=== PATIENT | male | born 1965 | race Caucasian/White ===

== ENCOUNTER 2017-08-12 04:02 | Emergency (ER) | payer BC ==
[2017-08-12] MEDS: IV NORMAL SALINE 1000ML BAG 1,000 ML IV ×2 (04:58)
[2017-08-12] MEDS: predniSONE 10 MG TABLET PO ×2 (05:02)
[2017-08-12] MEDS: KETOROLAC 30 MG/ML INJ. IV ×2 (05:03)
[2017-08-12] MEDS: MORPHINE SULFATE 10 MG/ML VIAL. IV ×2 (05:08)
[2017-08-12] MEDS: IPRATRPIUM/ALBUTEROL 0.5/2.5MG 3 ML NEBU. NEB ×2 (05:18)
[2017-08-12] MEDS ORDERED: fentaNYL PF VIAL 100 MCG/2 ML VIAL IV ×2 (05:45)
[2017-08-12] MEDS ORDERED: IV NORMAL SALINE 1000ML BAG 1,000 ML IV ×2 (05:45)
== END 2017-08-12 06:44 | disposition home or self-care (01) ==
LOC: ER 04:02
DX: J11.1 Influenza due to unidentified influenza virus with other respiratory manifestations (principal); J98.01 Acute bronchospasm
CPT/HCPCS: 94640; 96361; 96374; 96375; 99284-25; J1885; J2270; J7030; J7512; J7620

== ENCOUNTER → 2018-09-08 | Outpatient (CLI) | payer BC ==
[2017-08-12 06:29] VITALS: BP 124/76
[~2018-09-08] MED LIST: DOXY100C14 PO; HYDR5SUS PO; PRED50TA PO; PROVENTIL HFA6.7 G2 IH
--- NOTE | 2018-09-08 13:55 | KCIC ---
PROCEDURE: CHEST PA LATERAL CLINICAL INDICATION: Weight loss of 30 pounds. Smoker. COMPARISON: None FINDINGS: No pneumothorax identified. Cardiac and mediastinal contours unremarkable. No pulmonary consolidation or acute airspace disease. No acute osseous abnormalities identified. IMPRESSION: No pulmonary consolidation or acute airspace disease. Electronically signed by: Flaquito Ghotra DO (09/08/2018 1:52 PM) [id number]
== END | disposition home or self-care (01) ==
LOC: KCIC 13:15
PROVIDERS: ATTEND Family Medicine
DX: R63.4 Abnormal weight loss (principal); F17.200 Nicotine dependence, unspecified, uncomplicated
CPT/HCPCS: 71046

== ENCOUNTER → 2019-01-16 | Outpatient (CLI) | payer BC ==
[2017-08-12 06:29] VITALS: BP 124/76
--- NOTE | 2019-01-16 15:57 | KCIC ---
Three-view right foot study Clinical indications: Right foot pain status post injury 4 days ago. FINDINGS: No acute fracture or dislocation or lytic process is seen. No periosteal reaction is evident. 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 IMPRESSION: No acute fracture. Electronically signed by: Husam Fierro MD (01/16/2019 3:54 PM) [id number]
== END | disposition home or self-care (01) ==
LOC: KCIC 10:28
PROVIDERS: ATTEND Nurse Practitioner Family
DX: S99.821A Other specified injuries of right foot, initial encounter (principal); M19.071 Primary osteoarthritis, right ankle and foot; X58.XXXA Exposure to other specified factors, initial encounter; Y93.89 Activity, other specified; Y92.89 Other specified places as the place of occurrence of the external cause; Y99.8 Other external cause status
CPT/HCPCS: 73630

== ENCOUNTER 2020-02-10 15:18 | Inpatient (IN) | payer BC, OTHER ==
[~2020-02-10] VITALS: Ht 182.9 cm; Wt 108.6 kg
--- NOTE | 2020-02-10 17:47 | PHYS DOC ---
Past Medical History Past Medical History: Other Additional Past Medical Histor: broken bones,PRE DIABETIC Past Surgical History: Tonsillectomy, Other Additional Past Surgical Histo: L big toe; Smoking Status: Current Every Day Smoker Alcohol Use: Occasionally Drug Use: None General Adult EDM: Chief Complaint: ABDOMINAL PAIN HPI: HPI: Patient is a 55 year old male presents via private vehicle for abdominal pain. Onset was within last 48 hours without any known inciting event. Tums have been taken with mild alleviation of pain, palpation of generalized abdomen make worse. Pain described as colicky, generalized, and worse in epigastric area. He reports pain is currently 7/10 severity. Timing of symptoms have been constant and worsening since onset. Associated symptoms include nausea. He reports having similar episodes of abdominal pain with increased frequency over the last couple months. He notices this pain occurs an hour or 2 after eating meals and goes away spontaneously but this time, it did not go away prompting him to seek care at [facility] ED Review of Systems: Review of Systems: Constitutional: Denies fever or chills. [] Eyes: Denies change in visual acuity. [] HENT: Denies nasal congestion or sore throat. [] Respiratory: Denies cough or shortness of breath. [] Cardiovascular: Denies chest pain or edema. [] GI: Denies vomiting, bloody stools or diarrhea. Abdominal pain discussed in HPI, positive for nausea [] : Denies dysuria. No discharge [] Musculoskeletal: Denies back pain or joint pain. [] Integument: Denies rash. [] Neurologic: Denies headache, focal weakness or sensory changes. [] Endocrine: Denies polyuria or polydipsia. [] Lymphatic: Denies swollen glands. [] Psychiatric: Denies depression or anxiety. [] Heart Score: HEART Score for Chest Pain: HEART Score for Chest Pain Response (Comments) Value History Moderately Suspicious 1 ECG Normal 0 Age >45 - < 65 1 Risk Factors >3 Risk Factors or Hx CAD 2 Troponin < Normal Limit 0 Total 4 Risk Factors: Risk Factors: DM, Current or recent (<one month) smoker, HTN, HLP, family history of CAD, obesity. Risk Scores: Score 0 - 3: 2.5% MACE over next 6 weeks - Discharge Home Score 4 - 6: 20.3% MACE over next 6 weeks - Admit for Clinical Observation Score 7 - 10: 72.7% MACE over next 6 weeks - Early Invasive Strategies Allergies: Allergies: Allergies Coded Allergies Type Severity Reaction Last Updated Verified No Known Drug Allergies 08/12/17 No Physical Exam: PE: Constitutional: Well developed, well nourished, mild distress, non-toxic appearance. [] HENT: Normocephalic, atraumatic, bilateral external ears normal, oropharynx moist, no oral exudates, nose normal. [] Eyes: PERRLA, EOMI, conjunctiva normal, no discharge. [] Neck: Normal range of motion, no tenderness, supple, no stridor. [] Cardiovascular:Heart rate regular rhythm, no murmur [] Lungs & Thorax: Bilateral breath sounds clear to auscultation [] Abdomen: Bowel sounds normal, soft, no masses, no pulsatile masses. Generalized tenderness to palpation in all 4 quadrants, worse in epigastric region, positive Rocha's, negative obturator sign, negative heel slap, no peritoneal signs, nonsurgical abdomen Skin: Warm, dry, no erythema, no rash. [] Back: No tenderness, no CVA tenderness. [] Extremities: No tenderness, no cyanosis, no clubbing, ROM intact, no edema. [] Neurologic: Alert and oriented X 3, normal motor function, normal sensory function, no focal deficits noted. [] Psychologic: Affect normal, judgement normal, mood normal. [] Current Patient Data: Labs: Laboratory Tests Test 02/10/20 17:40 White Blood Count 11.4 x10^3/uL Red Blood Count 5.37 x10^6/uL Hemoglobin 17.6 g/dL Hematocrit 50.6 % Mean Corpuscular Volume 94 fL Mean Corpuscular Hemoglobin 33 pg Mean Corpuscular Hemoglobin Concent 35 g/dL Red Cell Distribution Width 13.9 % Platelet Count 210 x10^3/uL Neutrophils (%) (Auto) 67 % Lymphocytes (%) (Auto) 18 % Monocytes (%) (Auto) 11 % Eosinophils (%) (Auto) 4 % Basophils (%) (Auto) 0 % Neutrophils # (Auto) 7.6 x10^3/uL Lymphocytes # (Auto) 2.0 x10^3/uL Monocytes # (Auto) 1.2 x10^3/uL Eosinophils # (Auto) 0.5 x10^3/uL Basophils # (Auto) 0.0 x10^3/uL Sodium Level 136 mmol/L Potassium Level 4.4 mmol/L Chloride Level 102 mmol/L Carbon Dioxide Level 28 mmol/L Anion Gap 6 Blood Urea Nitrogen 13 mg/dL Creatinine 1.1 mg/dL Estimated GFR (Cockcroft-Gault) 69.5 BUN/Creatinine Ratio 12 Glucose Level 152 mg/dL Calcium Level 9.1 mg/dL Total Bilirubin 4.1 mg/dL Aspartate Amino Transf (AST/SGOT) 364 U/L Alanine Aminotransferase (ALT/SGPT) 527 U/L Alkaline Phosphatase 138 U/L Troponin I Quantitative < 0.017 ng/mL Total Protein 7.6 g/dL Albumin 3.9 g/dL Albumin/Globulin Ratio 1.1 Lipase 38688 U/L Current Medications Medications (Trade) Dose Ordered Sig/Damon Route PRN Reason Start Time Stop Time Status Last Admin Dose Admin Multi-Ingredient Mouthwash/Gargle (Gi Cocktail) 20 ml 1X ONCE SWSW 02/10/20 18:00 02/10/20 18:01 DC 02/10/20 18:02 Multi-Ingredient Mouthwash/Gargle (Gi Cocktail) 20 ml STK-MED ONCE .ROUTE 02/10/20 18:00 02/10/20 18:01 DC Iohexol (Omnipaque 300 Mg/ml) 75 ml 1X ONCE IV 02/10/20 19:00 02/10/20 19:01 DC 02/10/20 19:07 Info (CONTRAST GIVEN -- Rx MONITORING) 1 each PRN DAILY PRN MC SEE COMMENTS 02/10/20 18:45 02/12/20 18:44 Sodium Chloride 1,000 ml @ 175 mls/hr 1X ONCE IV 02/10/20 20:00 02/11/20 01:42 02/10/20 20:37 Vital Signs: Vital Signs Date Time Temp Pulse Resp B/P (MAP) Pulse Ox O2 Delivery O2 Flow Rate FiO2 02/10/20 17:25 98.3 82 18 161/93 (115) 97 Room Air 98.3 EKG: EKG: EKG obtained and interpreted by myself at 1801 hrs. as normal sinus rhythm at 70 bpm, no axis deviation, unremarkable intervals, no ischemic findings, no STEMI Radiology/Procedures: Radiology/Procedures: PROCEDURE: CT ABD PELV W/ IV CONTRST ONLY EXAM: CT ABDOMEN/PELVIS WITH CONTRAST. HISTORY: Abdominal pain. TECHNIQUE: Computed tomography of the abdomen and pelvis was performed after the intravenous administration of iodinated contrast. One or more of the following individualized dose reduction techniques were utilized for this examination: 1. Automated exposure control. 2. Adjustment of the mA and/or kV according to patient size. 3. Use of iterative reconstruction technique. COMPARISON: None. FINDINGS: Lung windows through the visualized portions of the bases reveal mild atelectasis. Bone windows reveal no suspicious lesions. The gallbladder wall is thickened. There is a gallstone in the gallbladder neck. The common duct is mildly dilated at 9 mm. The liver, pancreas, spleen and kidneys are unremarkable. A nodule in the right adrenal gland measures 24 Hounsfield units postcontrast and is indeterminate. It measures 16 mm. Another 7 mm nodule in the left adrenal gland is also indeterminate by CT criteria. There are no pathologically enlarged lymph nodes. The appendix is not inflamed. There is no small bowel obstruction. The prostate is moderately enlarged at 5.4 cm. IMPRESSION: 1. Gallbladder wall thickening. Gallstone in the gallbladder neck. These findings are consistent with acute cholecystitis. 2. Mild intra and extrahepatic biliary dilatation. No radiopaque choledocholithiasis. 3. Bilateral adrenal nodules are indeterminate by CT criteria but most likely reflect benign adenomas in the absence of known malignancy. Electronically signed by: Dirk Castrejon MD (02/10/2020 7:20 PM) [id number] PROCEDURE: PORTABLE CHEST 1V Exam: Chest one view INDICATION: Epigastric pain TECHNIQUE: Frontal view of the chest Comparisons: 09/08/2018 FINDINGS: The cardiomediastinal silhouette and pulmonary vessels are within normal limits. The lung and pleural spaces are clear. IMPRESSION: No acute cardiopulmonary process. Electronically signed by: Braxton Rasmussen MD (02/10/2020 6:29 PM) [id number] Course & Med Decision Making: Course & Med Decision Making Patient seen on ED arrival, no past medical records to review Vital signs grossly unremarkable, comprehensive history and physical exam non- concerning for emergent intervention IV access obtained, IV fluids administered and times 1 GI cocktail administered with mild relief in symptoms Pertinent Labs and Imaging studies ordered and reviewed with patient Discuss case with on-call general surgeon, Dr. Law, who recommended admission for eventual surgical fixation of patient's gallbladder Discussed case with hospitalist, Dr. Brannon, who agreed admission of patient for continued medical management in anticipation for surgical fixation Plan of care discussed with patient and . All in agreement for admission for bowel rest, IV antibiotics, continued pain control with eventual plans for surgery Dragon Disclaimer: Dragon Disclaimer: This electronic medical record was generated, in whole or in part, using a voice recognition dictation system. Departure Departure Impression: Primary Impression: Cholecystitis, acute with cholelithiasis Disposition: ADMITTED INPATIENT Admitting Physician: JOSSELINES (Dr. Brannon) Condition: STABLE Referrals: JOSSELYN WATERS MGMT ANALYST (PCP) Justicifation of Admission Dx: Justifications for Admission: Justification of Admission Dx: Yes (Acute cholecystitis with regional involvement of pancreas and liver) CELSO DE LA GARZA DO Feb 10, 2020 17:46
[2020-02-10 17:58] LABS: BASO % 0 % (0-3); EOS # 0.5 x10^3/uL (0.0-0.7); EOS % 4 % (0-3); HEMATOCRIT 50.6 % (39.0-53.0); HEMOGLOBIN 17.6 g/dL (13.0-17.5); LYMPH % 18 % (24-48); MEAN CORPUSCULAR HEMOGLOBIN 33 pg (25-35); MEAN CORPUSCULAR HGB CONC 35 g/dL (31-37); MEAN CORPUSCULAR VOLUME 94 fL (79-100); MONO # 1.2 x10^3/uL (0.0-1.1); MONO % 11 % (0-9); NEUT # 7.6 x10^3/uL (1.8-7.7); NEUT % 67 % (31-73); PLATELET COUNT 210 x10^3/uL (140-400); RED BLOOD COUNT 5.37 x10^6/uL (4.30-5.70); RED CELL DISTRIBUTION WIDTH 13.9 % (11.5-14.5); WHITE BLOOD COUNT 11.4 x10^3/uL (4.0-11.0)
[2020-02-10] MEDS ORDERED: LIDO:MAALOX 1:1 20 ML SINGLE DOSE. SWSW ONE (18:00)
[2020-02-10] MEDS ORDERED: LIDO:MAALOX 1:1 20 ML SINGLE DOSE. ONE (18:00)
[2020-02-10 18:10] LABS: CALCIUM 9.1 mg/dL (8.5-10.1); CREATININE 1.1 mg/dL (0.7-1.3); GFR 69.5; POTASSIUM 4.4 mmol/L (3.5-5.1)
[2020-02-10 18:13] LABS: ALBUMIN 3.9 g/dL (3.4-5.0); ALBUMIN/GLOBULIN RATIO 1.1 (1.0-1.7); TOTAL BILIRUBIN 4.1 mg/dL (0.2-1.0); TOTAL PROTEIN 7.6 g/dL (6.4-8.2)
--- NOTE | 2020-02-10 18:32 | RAD ---
Exam: Chest one view INDICATION: Epigastric pain TECHNIQUE: Frontal view of the chest Comparisons: 09/08/2018 FINDINGS: The cardiomediastinal silhouette and pulmonary vessels are within normal limits. The lung and pleural spaces are clear. IMPRESSION: No acute cardiopulmonary process. Electronically signed by: Braxton Rasmussen MD (02/10/2020 6:29 PM) [id number]
[2020-02-10] MEDS ORDERED: CONTRAST GIVEN. MC PRN (18:45)
[2020-02-10] MEDS ORDERED: IOHEXOL 300 MG/ML 100ML VIAL. IV ONE (19:00)
--- NOTE | 2020-02-10 19:23 | RAD ---
EXAM: CT ABDOMEN/PELVIS WITH CONTRAST. HISTORY: Abdominal pain. TECHNIQUE: Computed tomography of the abdomen and pelvis was performed after the intravenous administration of iodinated contrast. One or more of the following individualized dose reduction techniques were utilized for this examination: 1. Automated exposure control. 2. Adjustment of the mA and/or kV according to patient size. 3. Use of iterative reconstruction technique. COMPARISON: None. FINDINGS: Lung windows through the visualized portions of the bases reveal mild atelectasis. Bone windows reveal no suspicious lesions. The gallbladder wall is thickened. There is a gallstone in the gallbladder neck. The common duct is mildly dilated at 9 mm. The liver, pancreas, spleen and kidneys are unremarkable. A nodule in the right adrenal gland measures 24 Hounsfield units postcontrast and is indeterminate. It measures 16 mm. Another 7 mm nodule in the left adrenal gland is also indeterminate by CT criteria. There are no pathologically enlarged lymph nodes. The appendix is not inflamed. There is no small bowel obstruction. The prostate is moderately enlarged at 5.4 cm. IMPRESSION: 1. Gallbladder wall thickening. Gallstone in the gallbladder neck. These findings are consistent with acute cholecystitis. 2. Mild intra and extrahepatic biliary dilatation. No radiopaque choledocholithiasis. 3. Bilateral adrenal nodules are indeterminate by CT criteria but most likely reflect benign adenomas in the absence of known malignancy. Electronically signed by: Dirk Castrejon MD (02/10/2020 7:20 PM) [facility]
[2020-02-10] MEDS ORDERED: IV NORMAL SALINE 1000ML BAG 1,000 ML IV ONE (20:00)
[2020-02-10] MEDS ORDERED: ONDANSETRON PF 4 MG/2 ML VIAL. IV PRN ×2 (20:15→22:15)
[2020-02-10] MEDS ORDERED: PIPERACILLIN/TAZOBACTAM 4.5 GM in IV NORMAL SALINE 100ML 100 ML IV ONE (20:30)
[2020-02-10] MEDS: MORPHINE SULFATE 2 MG/ML VIAL. IV PRN (20:40)
[2020-02-10 21:25] VITALS: BP 152/97
--- NOTE | 2020-02-10 21:35 | NUR ---
ADMISSION NOTE: Patient arrived to room 528 via wheelchair accompanied by ED staff. Patient able to transfer self to hospital bed without difficulty. Bed low, locked, call light within reach. Patient has no complaints at this time. Will continue to monitor.
[2020-02-10] MEDS ORDERED: METF10007 PO (22:06)
[2020-02-10] MEDS ORDERED: LISI10TA2 PO (22:06)
[2020-02-10] MEDS ORDERED: DAPA10TA PO (22:06)
[2020-02-10] MEDS ORDERED: ATOR10TA60 PO (22:06)
[2020-02-10] MEDS ORDERED: ACETAMINOPHEN 325 MG TABLET. PO PRN (22:15)
[2020-02-10] MEDS ORDERED: diphenhydrAMINE 50 MG/ML VIAL IVP PRN (22:15)
[2020-02-10] MEDS ORDERED: ZOLPIDEM 5 MG TABLET. PO PRN (22:15)
[2020-02-10] MEDS ORDERED: ACETAMINOPHEN 650 MG SUPP.RECT. PR PRN (22:15)
[2020-02-10] MEDS ORDERED: LORazepam 0.5 MG TABLET PO PRN (22:15)
[2020-02-10] MEDS ORDERED: DOCUSATE SODIUM 100 MG CAPSULE. PO PRN (22:15)
[2020-02-10] MEDS ORDERED: guaiFENesin ORAL 200 MG/10 ML LIQUID. PO PRN (22:15)
--- NOTE | 2020-02-10 22:21 | PDOC1 ---
History and Physical Date of Admission Date of Admission ` February 10, 2020 Identification/Chief Complaint Chief Complaint My stomach hurt Source Source: Chart review, Patient History of Present Illness History of Present Illness Patient is a 55-year-old male with no significant past medical history who was in his usual state of health until more or less 2 weeks ago when he started complaining of epigastric pain. The patient has tried to self medicated at home with Pepto-Bismol Fatmata-[place] and Nexium with very little relief of his symptoms. Patient denies dietary transgressions but when asked further the patient seems to indulge in pretty fatty foods including Sonic. The patient has been unable to keep anything down today and the pain he describes as a sharp sensation with no radiation to the back but does seem to be in a bandlike fashion across his epigastrium to the right and left flank. The patient has associated nausea no vomiting no diarrhea no travels outside this area and no sick contacts have been reported. The patient denies fever chills no other complaints were voiced. Patient was found to have findings concerning for acute cholecystitis on imaging studies he certainly is quite tender on physical exam but certainly not exhibiting peritoneal signs nor surgical abdomen signs. He was found to have also an elevated white blood cell count transaminases and also lipase. Results of his imaging studies were discussed with the patient, was at bedside as well and plan of care explained in detail all of their concerns addressed to the best of my abilities he will be admitted for definitive treatment Past Medical History Past Medical History Reviewed and found negative noncontributory Cardiovascular: No pertinent hx Past Surgical History Past Surgical History: Other (Reviewed and found negative noncontributory) Family History Family History: No Significant (Reviewed and found negative noncontributory), Other Social History Smoke: No ALCOHOL: none Drugs: None Current Problem List Problem List Problems Medical Problems: (1) Cholecystitis, acute with cholelithiasis Status: Acute Current Medications Current Medications Current Medications Medications (Trade) Dose Ordered Sig/Damon Start Time Stop Time Status Last Admin Dose Admin Info (CONTRAST GIVEN -- Rx MONITORING) 1 each PRN DAILY PRN 02/10/20 18:45 02/12/20 18:44 Iohexol (Omnipaque 300 Mg/ml) 75 ml 1X ONCE 02/10/20 19:00 02/10/20 19:01 DC 02/10/20 19:07 75 ML Morphine Sulfate (Morphine Sulfate) 2 mg PRN Q2HR PRN 02/10/20 20:15 02/11/20 20:14 02/10/20 20:40 2 MG Multi-Ingredient Mouthwash/Gargle (Gi Cocktail) 20 ml STK-MED ONCE 02/10/20 18:00 02/10/20 18:01 DC Ondansetron HCl (Zofran) 4 mg PRN Q8HRS PRN 02/10/20 20:15 02/11/20 20:14 Piperacillin Sod/ Tazobactam Sod 4.5 gm/Sodium Chloride 100 ml @ 200 mls/hr 1X ONCE 02/10/20 20:30 02/10/20 20:59 DC 02/10/20 20:38 200 MLS/HR Sodium Chloride 1,000 ml @ 175 mls/hr 1X ONCE 02/10/20 20:00 02/11/20 01:42 02/10/20 20:37 175 MLS/HR Allergies Allergies Allergies Coded Allergies Type Severity Reaction Last Updated Verified No Known Drug Allergies 08/12/17 No ROS Review of System CONSTITUTIONAL: No fever or chills EYES: No recent changes SKIN: No rash or itching CARDIOVASCULAR: No chest pain, syncope, palpitations, or edema RESPIRATORY: No SOB or cough GASTROINTESTINAL: No nausea, vomiting or abdominal pain NEUROLOGICAL: No headaches or weakness ENDOCRINE: No cold or heat intolerance GENITOURINARY: No urgency or frequency of urination MUSCULOSKELETAL: No back pain or joint pain LYMPHATICS: No enlarged lymph nodes PSYCHIATRIC: No anxiety or depression Physical Exam Physical Exam GEN.: No apparent distress. Alert and oriented. HEENT: Head is normocephalic, atraumatic NECK: Supple. LUNGS: Clear to auscultation. HEART: RRR, S1, S2 present. Peripheral pulses intact ABDOMEN: Soft, nontender. Positive bowel sounds. EXTREMITIES: Without any cyanosis. NEUROLOGIC: Normal speech, normal tone PSYCHIATRIC: Normal affect, normal mood. SKIN: No ulcerations Vitals Vitals Vital Signs Date Time Temp Pulse Resp B/P (MAP) Pulse Ox O2 Delivery O2 Flow Rate FiO2 02/10/20 21:25 98.5 66 18 152/97 (115) 97 Room Air 98.5 Labs Labs Laboratory Tests Test 02/10/20 17:40 02/10/20 20:44 White Blood Count 11.4 x10^3/uL (4.0-11.0) Red Blood Count 5.37 x10^6/uL (4.30-5.70) Hemoglobin 17.6 g/dL (13.0-17.5) Hematocrit 50.6 % (39.0-53.0) Mean Corpuscular Volume 94 fL (79-100) Mean Corpuscular Hemoglobin 33 pg (25-35) Mean Corpuscular Hemoglobin Concent 35 g/dL (31-37) Red Cell Distribution Width 13.9 % (11.5-14.5) Platelet Count 210 x10^3/uL (140-400) Neutrophils (%) (Auto) 67 % (31-73) Lymphocytes (%) (Auto) 18 % (24-48) Monocytes (%) (Auto) 11 % (0-9) Eosinophils (%) (Auto) 4 % (0-3) Basophils (%) (Auto) 0 % (0-3) Neutrophils # (Auto) 7.6 x10^3/uL (1.8-7.7) Lymphocytes # (Auto) 2.0 x10^3/uL (1.0-4.8) Monocytes # (Auto) 1.2 x10^3/uL (0.0-1.1) Eosinophils # (Auto) 0.5 x10^3/uL (0.0-0.7) Basophils # (Auto) 0.0 x10^3/uL (0.0-0.2) Sodium Level 136 mmol/L (136-145) Potassium Level 4.4 mmol/L (3.5-5.1) Chloride Level 102 mmol/L (98-107) Carbon Dioxide Level 28 mmol/L (21-32) Anion Gap 6 (6-14) Blood Urea Nitrogen 13 mg/dL (8-26) Creatinine 1.1 mg/dL (0.7-1.3) Estimated GFR (Cockcroft-Gault) 69.5 BUN/Creatinine Ratio 12 (6-20) Glucose Level 152 mg/dL (70-99) Calcium Level 9.1 mg/dL (8.5-10.1) Total Bilirubin 4.1 mg/dL (0.2-1.0) Aspartate Amino Transf (AST/SGOT) 364 U/L (15-37) Alanine Aminotransferase (ALT/SGPT) 527 U/L (16-63) Alkaline Phosphatase 138 U/L (46-116) Troponin I Quantitative < 0.017 ng/mL (0.000-0.055) Total Protein 7.6 g/dL (6.4-8.2) Albumin 3.9 g/dL (3.4-5.0) Albumin/Globulin Ratio 1.1 (1.0-1.7) Lipase 27046 U/L (73-393) SARS-CoV-2 Antigen (Rapid) Negative (NEGATIVE) Laboratory Tests Test 02/10/20 17:40 02/10/20 20:44 White Blood Count 11.4 x10^3/uL (4.0-11.0) Red Blood Count 5.37 x10^6/uL (4.30-5.70) Hemoglobin 17.6 g/dL (13.0-17.5) Hematocrit 50.6 % (39.0-53.0) Mean Corpuscular Volume 94 fL (79-100) Mean Corpuscular Hemoglobin 33 pg (25-35) Mean Corpuscular Hemoglobin Concent 35 g/dL (31-37) Red Cell Distribution Width 13.9 % (11.5-14.5) Platelet Count 210 x10^3/uL (140-400) Neutrophils (%) (Auto) 67 % (31-73) Lymphocytes (%) (Auto) 18 % (24-48) Monocytes (%) (Auto) 11 % (0-9) Eosinophils (%) (Auto) 4 % (0-3) Basophils (%) (Auto) 0 % (0-3) Neutrophils # (Auto) 7.6 x10^3/uL (1.8-7.7) Lymphocytes # (Auto) 2.0 x10^3/uL (1.0-4.8) Monocytes # (Auto) 1.2 x10^3/uL (0.0-1.1) Eosinophils # (Auto) 0.5 x10^3/uL (0.0-0.7) Basophils # (Auto) 0.0 x10^3/uL (0.0-0.2) Sodium Level 136 mmol/L (136-145) Potassium Level 4.4 mmol/L (3.5-5.1) Chloride Level 102 mmol/L (98-107) Carbon Dioxide Level 28 mmol/L (21-32) Anion Gap 6 (6-14) Blood Urea Nitrogen 13 mg/dL (8-26) Creatinine 1.1 mg/dL (0.7-1.3) Estimated GFR (Cockcroft-Gault) 69.5 BUN/Creatinine Ratio 12 (6-20) Glucose Level 152 mg/dL (70-99) Calcium Level 9.1 mg/dL (8.5-10.1) Total Bilirubin 4.1 mg/dL (0.2-1.0) Aspartate Amino Transf (AST/SGOT) 364 U/L (15-37) Alanine Aminotransferase (ALT/SGPT) 527 U/L (16-63) Alkaline Phosphatase 138 U/L (46-116) Troponin I Quantitative < 0.017 ng/mL (0.000-0.055) Total Protein 7.6 g/dL (6.4-8.2) Albumin 3.9 g/dL (3.4-5.0) Albumin/Globulin Ratio 1.1 (1.0-1.7) Lipase 42259 U/L (73-393) SARS-CoV-2 Antigen (Rapid) Negative (NEGATIVE) VTE Prophylaxis Ordered VTE Prophylaxis Devices: Yes VTE Pharmacological Prophylaxi: No Assessment/Plan Assessment/Plan Acute pancreatitis Transaminitis secondary to most likely cholelithiasis Acute cholecystitis by imaging studies Erythrocytosis which may be hemoconcentration Plan IV fluids N.p.o. Zosyn as per surgical instrument repair specialist Further recommendations based on clinical course and recommendations from surgical instrument repair specialist Pain management DVT prophylaxis with SCDs Justicifation of Admission Dx: Justifications for Admission: Justification of Admission Dx: Yes (Acute cholecystitis with regional involvement of pancreas and liver) CRIS GOMEZ MD Feb 10, 2020 22:21
[2020-02-10] MEDS: ENOXAPARIN 40 MG/0.4 ML SYRINGE. SQ SCH (22:30)
[2020-02-10 23:26] VITALS: BP 138/88
[2020-02-11] MEDS: IV NORMAL SALINE 1000ML BAG 1,000 ML IV SCH ×3 (00:16→17:34)
[2020-02-11] MEDS: MORPHINE SULFATE 2 MG/ML VIAL. IV PRN ×2 (00:16→22:48)
[2020-02-11 02:55] VITALS: BP 117/81
[2020-02-11 04:26] LABS: BASO # 0.1 x10^3/uL (0.0-0.2); BASO % 1 % (0-3); EOS # 0.4 x10^3/uL (0.0-0.7); EOS % 4 % (0-3); HEMATOCRIT 47.4 % (39.0-53.0); HEMOGLOBIN 16.7 g/dL (13.0-17.5); LYMPH # 1.9 x10^3/uL (1.0-4.8); LYMPH % 19 % (24-48); MEAN CORPUSCULAR HEMOGLOBIN 33 pg (25-35); MEAN CORPUSCULAR HGB CONC 35 g/dL (31-37); MEAN CORPUSCULAR VOLUME 94 fL (79-100); MONO # 0.9 x10^3/uL (0.0-1.1); MONO % 9 % (0-9); NEUT # 6.7 x10^3/uL (1.8-7.7); NEUT % 68 % (31-73); PLATELET COUNT 199 x10^3/uL (140-400); RED BLOOD COUNT 5.05 x10^6/uL (4.30-5.70); RED CELL DISTRIBUTION WIDTH 14.1 % (11.5-14.5); WHITE BLOOD COUNT 9.9 x10^3/uL (4.0-11.0)
[2020-02-11 04:35] LABS: CALCIUM 8.2 mg/dL (8.5-10.1); CREATININE 0.9 mg/dL (0.7-1.3); GFR 87.6
[2020-02-11 04:44] LABS: CHOLESTEROL/HDL RATIO 2.3
[2020-02-11 07:00] VITALS: BP 126/82
--- NOTE | 2020-02-11 08:32 | PDOC ---
[facility] [facility] PROGRESS NOTE Chief Complaint Chief Complaint Acute pancreatitis Transaminitis secondary to most likely cholelithiasis Acute cholecystitis by imaging studies Erythrocytosis which may be hemoconcentration Smoker History of Present Illness History of Present Illness Mr Amaya is a 55-year-old male with no significant past medical history who was in his usual state of health until more or less 2 weeks ago when he started c omplaining of epigastric pain. The patient has tried to self medicated at home with Pepto-Bismol [place] and Nexium with very little relief of his symptoms. Patient denies dietary transgressions but when asked further the patient seems to indulge in pretty fatty foods including Sonic. The patient has been unable to keep anything down today and the pain he describes as a sharp sensation with no radiation to the back but does seem to be in a bandlike fashion across his epigastrium to the right and left flank. The patient has associated nausea no vomiting no diarrhea no travels outside this area and no sick contacts have been reported. The patient denies fever chills no other complaints were voiced. Patient was found to have findings concerning for acute cholecystitis on imaging studies: CT with gallbladder wall thickening. Gallstone in the gallbladder neck. These findings are consistent with acute cholecystitis. No radiopaque choledocholithiasis. Bilateral adrenal nodules. Significant for WBC 11.4 on admission down to 9.9 today. Bilirubin 4.1 alkaline phosphatase 136 AST 364 ALT 552 lipase 22,870 down to 5067 today. Total triglycerides 82. He is hungry and asking for a cigarette. Vitals/I&O Vitals/I&O: Vital Signs Date Time Temp Pulse Resp B/P (MAP) Pulse Ox O2 Delivery O2 Flow Rate FiO2 02/11/20 02:55 98.5 72 16 117/81 (93) 96 Room Air 98.5 I & O 02/10/20 02/10/20 02/11/20 15:00 23:00 07:00 Intake Total 100 ml Balance 100 ml Physical Exam General: Alert, Oriented X3, Cooperative Heart: Regular rate, Normal S1, Normal S2 Lungs: Clear Abdomen: Normal bowel sounds, Soft Extremities: No clubbing, No cyanosis Skin: No rashes, No breakdown Labs Labs: Laboratory Tests Test 02/10/20 17:40 02/10/20 20:44 02/11/20 04:00 White Blood Count 11.4 x10^3/uL (4.0-11.0) 9.9 x10^3/uL (4.0-11.0) Red Blood Count 5.37 x10^6/uL (4.30-5.70) 5.05 x10^6/uL (4.30-5.70) Hemoglobin 17.6 g/dL (13.0-17.5) 16.7 g/dL (13.0-17.5) Hematocrit 50.6 % (39.0-53.0) 47.4 % (39.0-53.0) Mean Corpuscular Volume 94 fL (79-100) 94 fL (79-100) Mean Corpuscular Hemoglobin 33 pg (25-35) 33 pg (25-35) Mean Corpuscular Hemoglobin Concent 35 g/dL (31-37) 35 g/dL (31-37) Red Cell Distribution Width 13.9 % (11.5-14.5) 14.1 % (11.5-14.5) Platelet Count 210 x10^3/uL (140-400) 199 x10^3/uL (140-400) Neutrophils (%) (Auto) 67 % (31-73) 68 % (31-73) Lymphocytes (%) (Auto) 18 % (24-48) 19 % (24-48) Monocytes (%) (Auto) 11 % (0-9) 9 % (0-9) Eosinophils (%) (Auto) 4 % (0-3) 4 % (0-3) Basophils (%) (Auto) 0 % (0-3) 1 % (0-3) Neutrophils # (Auto) 7.6 x10^3/uL (1.8-7.7) 6.7 x10^3/uL (1.8-7.7) Lymphocytes # (Auto) 2.0 x10^3/uL (1.0-4.8) 1.9 x10^3/uL (1.0-4.8) Monocytes # (Auto) 1.2 x10^3/uL (0.0-1.1) 0.9 x10^3/uL (0.0-1.1) Eosinophils # (Auto) 0.5 x10^3/uL (0.0-0.7) 0.4 x10^3/uL (0.0-0.7) Basophils # (Auto) 0.0 x10^3/uL (0.0-0.2) 0.1 x10^3/uL (0.0-0.2) Sodium Level 136 mmol/L (136-145) 138 mmol/L (136-145) Potassium Level 4.4 mmol/L (3.5-5.1) 4.0 mmol/L (3.5-5.1) Chloride Level 102 mmol/L (98-107) 105 mmol/L (98-107) Carbon Dioxide Level 28 mmol/L (21-32) 24 mmol/L (21-32) Anion Gap 6 (6-14) 9 (6-14) Blood Urea Nitrogen 13 mg/dL (8-26) 10 mg/dL (8-26) Creatinine 1.1 mg/dL (0.7-1.3) 0.9 mg/dL (0.7-1.3) Estimated GFR (Cockcroft-Gault) 69.5 87.6 BUN/Creatinine Ratio 12 (6-20) Glucose Level 152 mg/dL (70-99) 145 mg/dL (70-99) Calcium Level 9.1 mg/dL (8.5-10.1) 8.2 mg/dL (8.5-10.1) Total Bilirubin 4.1 mg/dL (0.2-1.0) Aspartate Amino Transf (AST/SGOT) 364 U/L (15-37) Alanine Aminotransferase (ALT/SGPT) 527 U/L (16-63) Alkaline Phosphatase 138 U/L (46-116) Troponin I Quantitative < 0.017 ng/mL (0.000-0.055) Total Protein 7.6 g/dL (6.4-8.2) Albumin 3.9 g/dL (3.4-5.0) Albumin/Globulin Ratio 1.1 (1.0-1.7) Lipase 91951 U/L (73-393) 5067 U/L (73-393) SARS-CoV-2 Antigen (Rapid) Negative (NEGATIVE) Triglycerides Level 82 mg/dL (0-150) Cholesterol Level 74 mg/dL (0-200) LDL Cholesterol, Calculated 26 mg/dL (0-100) VLDL Cholesterol, Calculated 16 mg/dL (0-40) Non-HDL Cholesterol Calculated 42 mg/dL (0-129) HDL Cholesterol 32 mg/dL (40-60) Cholesterol/HDL Ratio 2.3 Assessment and Plan Assessmemt and Plan Problems Medical Problems: (1) Cholecystitis, acute with cholelithiasis Status: Acute Comment Review of Relevant I have reviewed the following items melissa (where applicable) has been applied. Medications: Current Medications Medications (Trade) Dose Ordered Sig/Damon Route PRN Reason Start Time Stop Time Status Last Admin Dose Admin Multi-Ingredient Mouthwash/Gargle (Gi Cocktail) 20 ml 1X ONCE SWSW 02/10/20 18:00 02/10/20 18:01 DC 02/10/20 18:02 Iohexol (Omnipaque 300 Mg/ml) 75 ml 1X ONCE IV 02/10/20 19:00 02/10/20 19:01 DC 02/10/20 19:07 Sodium Chloride 1,000 ml @ 175 mls/hr 1X ONCE IV 02/10/20 20:00 02/11/20 01:42 DC 02/10/20 20:37 Piperacillin Sod/ Tazobactam Sod 4.5 gm/Sodium Chloride 100 ml @ 200 mls/hr 1X ONCE IV 02/10/20 20:30 02/10/20 20:59 DC 02/10/20 20:38 Morphine Sulfate (Morphine Sulfate) 2 mg PRN Q2HR PRN IV PAIN 02/10/20 20:15 02/11/20 20:14 02/11/20 00:16 Sodium Chloride 1,000 ml @ 100 mls/hr Q10H IV 02/10/20 22:15 02/11/20 00:16 Justicifation of Admission Dx: Justifications for Admission: Justification of Admission Dx: Yes (Acute cholecystitis with regional involvement of pancreas and liver) JUAN CARLOS OLIVARES MD Feb 11, 2020 08:32
[2020-02-11] MEDS: PIPERACILLIN/TAZOBACTAM 3.375 GM in IV NORMAL SALINE 50ML 50 ML IV SCH ×3 (09:13→17:34)
[2020-02-11] MEDS: NICOTINE POLACRILEX 2MG GUM PACKAGE of 12. BC PRN ×2 (10:41→12:30)
--- NOTE | 2020-02-11 10:43 | PDOC2 ---
CONSULT Date of Consult Date of Consult DATE: 02/11/20 TIME: 10:41 Reason for Consult Reason for Consult: Gallstone pancreatitis Referring Physician Referring Physician: Genie Identification/Chief Complaint Chief Complaint Abdominal pain Source Source: Chart review, Patient History of Present Illness Reason for Visit: 55-year-old male whose had abdominal pain epigastric nature to right upper quadrant for 5 days became worse and his came to the emergency department for evaluation. He has had some nausea no vomiting on evaluation emergency department was found to have elevated lipase and a CT scan showing gallstones with thickened gallbladder wall Past Medical History Cardiovascular: No pertinent hx Past Surgical History Past Surgical History: Other (Reviewed and found negative noncontributory) Family History Family History: No Significant (Reviewed and found negative noncontributory), Other Social History No ALCOHOL: none Drugs: None Current Problem List Problem List Problems Medical Problems: (1) Cholecystitis, acute with cholelithiasis Status: Acute Current Medications Current Medications Current Medications Multi-Ingredient Mouthwash/Gargle (Gi Cocktail) 20 ml 1X ONCE SWSW Last administered on 02/10/20at 18:02; Start 02/10/20 at 18:00; Stop 02/10/20 at 18:01; Status DC Multi-Ingredient Mouthwash/Gargle (Gi Cocktail) 20 ml STK-MED ONCE .ROUTE ; Start 02/10/20 at 18:00; Stop 02/10/20 at 18:01; Status DC Iohexol (Omnipaque 300 Mg/ml) 75 ml 1X ONCE IV Last administered on 02/10/20at 19:07; Start 02/10/20 at 19:00; Stop 02/10/20 at 19:01; Status DC Info (CONTRAST GIVEN -- Rx MONITORING) 1 each PRN DAILY PRN MC SEE COMMENTS; Start 02/10/20 at 18:45; Stop 02/12/20 at 18:44 Sodium Chloride 1,000 ml @ 175 mls/hr 1X ONCE IV Last administered on 02/10/20at 20:37; Start 02/10/20 at 20:00; Stop 02/11/20 at 01:42; Status DC Piperacillin Sod/ Tazobactam Sod 4.5 gm/Sodium Chloride 100 ml @ 200 mls/hr 1X ONCE IV Last administered on 02/10/20at 20:38; Start 02/10/20 at 20:30; Stop 02/10/20 at 20:59; Status DC Ondansetron HCl (Zofran) 4 mg PRN Q8HRS PRN IV NAUSEA/VOMITING; Start 02/10/20 at 20:15; Stop 02/11/20 at 20:14 Morphine Sulfate (Morphine Sulfate) 2 mg PRN Q2HR PRN IV PAIN Last administered on 02/11/20at 00:16; Start 02/10/20 at 20:15; Stop 02/11/20 at 20:14 Sodium Chloride 1,000 ml @ 100 mls/hr Q10H IV Last administered on 02/11/20at 08:28; Start 02/10/20 at 22:15 Ondansetron HCl (Zofran) 4 mg PRN Q4HRS PRN IV NAUSEA/VOMITING; Start 02/10/20 at 22:15 Zolpidem Tartrate (Ambien) 5 mg PRN QHS PRN PO INSOMNIA; Start 02/10/20 at 22:15 Acetaminophen (Tylenol) 650 mg PRN Q4HRS PRN PO TEMP OVER 100.4F OR MILD PAIN; Start 02/10/20 at 22:15 Acetaminophen (Tylenol Supp) 650 mg PRN Q4HRS PRN FL TEMP OVER 100.4F OR MILD PAIN; Start 02/10/20 at 22:15 Diphenhydramine HCl (Benadryl) 25 mg PRN Q4HRS PRN IVP ITCHING; Start 02/10/20 at 22:15 Docusate Sodium (Colace) 100 mg PRN BID PRN PO HARD STOOLS; Start 02/10/20 at 22:15 Guaifenesin (Robitussin) 200 mg PRN Q4HRS PRN PO COUGH; Start 02/10/20 at 22:15 Lorazepam (Ativan) 0.5 mg PRN Q4HRS PRN PO ANXIETY / AGITATION; Start 02/10/20 at 22:15 Lorazepam (Ativan Inj) 1 mg PRN Q4HRS PRN IV ANXIETY / AGITATION; Start 02/10/20 at 22:15 Enoxaparin Sodium (Lovenox 40mg Syringe) 40 mg Q24H SQ ; Start 02/10/20 at 22:30 Piperacillin Sod/ Tazobactam Sod 3.375 gm/Sodium Chloride 50 ml @ 100 mls/hr Q6HRS IV Last administered on 02/11/20at 09:13; Start 02/11/20 at 08:30 Nicotine Polacrilex (Nicorette Gum) 1 each PRN Q1HR PRN BC SMOKING CESSATION; Start 02/11/20 at 09:30 Active Scripts Active Reported Lisinopril 10 Mg Tablet 1 Tab PO DAILY Farxiga (Dapagliflozin Propanediol) 10 Mg Tablet 1 Tab PO DAILY Atorvastatin Calcium 10 Mg Tablet 1 Tab PO DAILY Metformin Hcl 1,000 Mg Tablet 1 Tab PO BIDBFRMEAL Allergies Allergies: Coded Allergies: No Known Drug Allergies (Unverified , 08/12/17) ROS Gastrointestinal: Yes Nausea, Yes Abdominal Pain Physical Exam General: Alert, Oriented X3, Cooperative, mild distress HEENT: Atraumatic Lungs: Clear to auscultation, Normal air movement Heart: Regular rate, No murmurs Abdomen: Normal bowel sounds, Soft, Other (Tender to palpation right upper qu adrant epigastrium) Extremities: No edema Skin: No significant lesion Neuro: Normal speech Psych/Mental Status: Mental status NL Vitals VITALS Vital Signs Date Time Temp Pulse Resp B/P (MAP) Pulse Ox O2 Delivery O2 Flow Rate FiO2 02/11/20 07:00 98.3 66 18 126/82 (97) 93 Room Air 98.3 Labs Labs Laboratory Tests Test 02/10/20 17:40 02/10/20 20:44 02/11/20 04:00 White Blood Count 11.4 x10^3/uL (4.0-11.0) 9.9 x10^3/uL (4.0-11.0) Red Blood Count 5.37 x10^6/uL (4.30-5.70) 5.05 x10^6/uL (4.30-5.70) Hemoglobin 17.6 g/dL (13.0-17.5) 16.7 g/dL (13.0-17.5) Hematocrit 50.6 % (39.0-53.0) 47.4 % (39.0-53.0) Mean Corpuscular Volume 94 fL (79-100) 94 fL (79-100) Mean Corpuscular Hemoglobin 33 pg (25-35) 33 pg (25-35) Mean Corpuscular Hemoglobin Concent 35 g/dL (31-37) 35 g/dL (31-37) Red Cell Distribution Width 13.9 % (11.5-14.5) 14.1 % (11.5-14.5) Platelet Count 210 x10^3/uL (140-400) 199 x10^3/uL (140-400) Neutrophils (%) (Auto) 67 % (31-73) 68 % (31-73) Lymphocytes (%) (Auto) 18 % (24-48) 19 % (24-48) Monocytes (%) (Auto) 11 % (0-9) 9 % (0-9) Eosinophils (%) (Auto) 4 % (0-3) 4 % (0-3) Basophils (%) (Auto) 0 % (0-3) 1 % (0-3) Neutrophils # (Auto) 7.6 x10^3/uL (1.8-7.7) 6.7 x10^3/uL (1.8-7.7) Lymphocytes # (Auto) 2.0 x10^3/uL (1.0-4.8) 1.9 x10^3/uL (1.0-4.8) Monocytes # (Auto) 1.2 x10^3/uL (0.0-1.1) 0.9 x10^3/uL (0.0-1.1) Eosinophils # (Auto) 0.5 x10^3/uL (0.0-0.7) 0.4 x10^3/uL (0.0-0.7) Basophils # (Auto) 0.0 x10^3/uL (0.0-0.2) 0.1 x10^3/uL (0.0-0.2) Sodium Level 136 mmol/L (136-145) 138 mmol/L (136-145) Potassium Level 4.4 mmol/L (3.5-5.1) 4.0 mmol/L (3.5-5.1) Chloride Level 102 mmol/L (98-107) 105 mmol/L (98-107) Carbon Dioxide Level 28 mmol/L (21-32) 24 mmol/L (21-32) Anion Gap 6 (6-14) 9 (6-14) Blood Urea Nitrogen 13 mg/dL (8-26) 10 mg/dL (8-26) Creatinine 1.1 mg/dL (0.7-1.3) 0.9 mg/dL (0.7-1.3) Estimated GFR (Cockcroft-Gault) 69.5 87.6 BUN/Creatinine Ratio 12 (6-20) Glucose Level 152 mg/dL (70-99) 145 mg/dL (70-99) Calcium Level 9.1 mg/dL (8.5-10.1) 8.2 mg/dL (8.5-10.1) Total Bilirubin 4.1 mg/dL (0.2-1.0) Aspartate Amino Transf (AST/SGOT) 364 U/L (15-37) Alanine Aminotransferase (ALT/SGPT) 527 U/L (16-63) Alkaline Phosphatase 138 U/L (46-116) Troponin I Quantitative < 0.017 ng/mL (0.000-0.055) Total Protein 7.6 g/dL (6.4-8.2) Albumin 3.9 g/dL (3.4-5.0) Albumin/Globulin Ratio 1.1 (1.0-1.7) Lipase 42311 U/L (73-393) 5067 U/L (73-393) SARS-CoV-2 Antigen (Rapid) Negative (NEGATIVE) Triglycerides Level 82 mg/dL (0-150) Cholesterol Level 74 mg/dL (0-200) LDL Cholesterol, Calculated 26 mg/dL (0-100) VLDL Cholesterol, Calculated 16 mg/dL (0-40) Non-HDL Cholesterol Calculated 42 mg/dL (0-129) HDL Cholesterol 32 mg/dL (40-60) Cholesterol/HDL Ratio 2.3 Laboratory Tests Test 02/10/20 17:40 02/10/20 20:44 02/11/20 04:00 White Blood Count 11.4 x10^3/uL (4.0-11.0) 9.9 x10^3/uL (4.0-11.0) Red Blood Count 5.37 x10^6/uL (4.30-5.70) 5.05 x10^6/uL (4.30-5.70) Hemoglobin 17.6 g/dL (13.0-17.5) 16.7 g/dL (13.0-17.5) Hematocrit 50.6 % (39.0-53.0) 47.4 % (39.0-53.0) Mean Corpuscular Volume 94 fL (79-100) 94 fL (79-100) Mean Corpuscular Hemoglobin 33 pg (25-35) 33 pg (25-35) Mean Corpuscular Hemoglobin Concent 35 g/dL (31-37) 35 g/dL (31-37) Red Cell Distribution Width 13.9 % (11.5-14.5) 14.1 % (11.5-14.5) Platelet Count 210 x10^3/uL (140-400) 199 x10^3/uL (140-400) Neutrophils (%) (Auto) 67 % (31-73) 68 % (31-73) Lymphocytes (%) (Auto) 18 % (24-48) 19 % (24-48) Monocytes (%) (Auto) 11 % (0-9) 9 % (0-9) Eosinophils (%) (Auto) 4 % (0-3) 4 % (0-3) Basophils (%) (Auto) 0 % (0-3) 1 % (0-3) Neutrophils # (Auto) 7.6 x10^3/uL (1.8-7.7) 6.7 x10^3/uL (1.8-7.7) Lymphocytes # (Auto) 2.0 x10^3/uL (1.0-4.8) 1.9 x10^3/uL (1.0-4.8) Monocytes # (Auto) 1.2 x10^3/uL (0.0-1.1) 0.9 x10^3/uL (0.0-1.1) Eosinophils # (Auto) 0.5 x10^3/uL (0.0-0.7) 0.4 x10^3/uL (0.0-0.7) Basophils # (Auto) 0.0 x10^3/uL (0.0-0.2) 0.1 x10^3/uL (0.0-0.2) Sodium Level 136 mmol/L (136-145) 138 mmol/L (136-145) Potassium Level 4.4 mmol/L (3.5-5.1) 4.0 mmol/L (3.5-5.1) Chloride Level 102 mmol/L (98-107) 105 mmol/L (98-107) Carbon Dioxide Level 28 mmol/L (21-32) 24 mmol/L (21-32) Anion Gap 6 (6-14) 9 (6-14) Blood Urea Nitrogen 13 mg/dL (8-26) 10 mg/dL (8-26) Creatinine 1.1 mg/dL (0.7-1.3) 0.9 mg/dL (0.7-1.3) Estimated GFR (Cockcroft-Gault) 69.5 87.6 BUN/Creatinine Ratio 12 (6-20) Glucose Level 152 mg/dL (70-99) 145 mg/dL (70-99) Calcium Level 9.1 mg/dL (8.5-10.1) 8.2 mg/dL (8.5-10.1) Total Bilirubin 4.1 mg/dL (0.2-1.0) Aspartate Amino Transf (AST/SGOT) 364 U/L (15-37) Alanine Aminotransferase (ALT/SGPT) 527 U/L (16-63) Alkaline Phosphatase 138 U/L (46-116) Troponin I Quantitative < 0.017 ng/mL (0.000-0.055) Total Protein 7.6 g/dL (6.4-8.2) Albumin 3.9 g/dL (3.4-5.0) Albumin/Globulin Ratio 1.1 (1.0-1.7) Lipase 63048 U/L (73-393) 5067 U/L (73-393) SARS-CoV-2 Antigen (Rapid) Negative (NEGATIVE) Triglycerides Level 82 mg/dL (0-150) Cholesterol Level 74 mg/dL (0-200) LDL Cholesterol, Calculated 26 mg/dL (0-100) VLDL Cholesterol, Calculated 16 mg/dL (0-40) Non-HDL Cholesterol Calculated 42 mg/dL (0-129) HDL Cholesterol 32 mg/dL (40-60) Cholesterol/HDL Ratio 2.3 Assessment/Plan Assessment/Plan Gallstone pancreatitis acute cholecystitis. Agree with plans for IV antibiotics bowel rest once pancreatitis resolved plan for laparoscopic cholecystectomy lizzeth rivera part of next week GONZALEZ BHAGAT MD Feb 11, 2020 10:43
[2020-02-11 11:00] VITALS: BP 137/78
[2020-02-11 15:00] VITALS: BP 132/92
--- NOTE | 2020-02-11 16:44 | NUR ---
Patient was upset today because he could not eat and smoke outside. This nurse offered nicotine patches but patient said they don't work for him. Notified Dr. Prescott who spoke to him about the matter. This afternoon, his came and was questioning about the patient not being able to eat. This nurse explained to the patient and to the patient's that he's on bowel rest due to gallstone pancreatitis. Teaching done regarding management and plan of care, they both verbalized understanding.
[2020-02-11] MEDS: ENOXAPARIN 40 MG/0.4 ML SYRINGE. SQ SCH (19:43)
[2020-02-11 19:46] VITALS: BP 136/90
[2020-02-11] MEDS ORDERED: DEXTROSE 50% 25 GM / 50ML DISP.SYRIN. IV PRN (20:45)
[2020-02-11] MEDS: INSULIN LISPRO 300 UNITS/3 ML VIAL. SQ SCH (20:54)
[2020-02-11] MEDS: LISINOPRIL 10 MG TABLET PO SCH (22:50)
[2020-02-11 23:00] VITALS: BP 137/100
[2020-02-12] MEDS: PIPERACILLIN/TAZOBACTAM 3.375 GM in IV NORMAL SALINE 50ML 50 ML IV SCH ×5 (00:18→23:30)
[2020-02-12 03:05] VITALS: BP 103/64
[2020-02-12] MEDS: IV NORMAL SALINE 1000ML BAG 1,000 ML IV SCH ×3 (05:16→23:30)
[2020-02-12] MEDS: MORPHINE SULFATE 2 MG/ML VIAL. IV PRN ×2 (05:20→21:04)
[2020-02-12 06:50] LABS: ALBUMIN 3.1 g/dL (3.4-5.0); ALBUMIN/GLOBULIN RATIO 0.9 (1.0-1.7); GFR 77.6; POTASSIUM 4.1 mmol/L (3.5-5.1); TOTAL BILIRUBIN 1.1 mg/dL (0.2-1.0); TOTAL PROTEIN 6.4 g/dL (6.4-8.2)
[2020-02-12 07:00] VITALS: BP 137/89
[2020-02-12] MEDS: INSULIN LISPRO 300 UNITS/3 ML VIAL. SQ SCH ×4 (07:30→20:59)
--- NOTE | 2020-02-12 08:11 | PDOC ---
SURGICAL PROGRESS NOTE Subjective Patient doing much better no abdominal pain requesting something to drink Vital Signs Vital Signs Date Time Temp Pulse Resp B/P (MAP) Pulse Ox O2 Delivery O2 Flow Rate FiO2 02/12/20 05:50 20 96 Room Air 02/12/20 03:05 97.9 58 103/64 (77) 97.9 I&O Intake and Output 02/12/20 07:00 Output Total 0 ml Balance 0 ml Output Urine Total 0 ml # Voids 1 PATIENT HAS A ESQUEDA: No General: Alert, Oriented X3, Cooperative, No acute distress Abdomen: Normal bowel sounds, Soft, Other (Mild tenderness in the epigastrium) Labs Laboratory Tests Test 02/10/20 17:40 02/10/20 20:44 02/11/20 04:00 02/11/20 20:28 White Blood Count 11.4 x10^3/uL (4.0-11.0) 9.9 x10^3/uL (4.0-11.0) Red Blood Count 5.37 x10^6/uL (4.30-5.70) 5.05 x10^6/uL (4.30-5.70) Hemoglobin 17.6 g/dL (13.0-17.5) 16.7 g/dL (13.0-17.5) Hematocrit 50.6 % (39.0-53.0) 47.4 % (39.0-53.0) Mean Corpuscular Volume 94 fL (79-100) 94 fL (79-100) Mean Corpuscular Hemoglobin 33 pg (25-35) 33 pg (25-35) Mean Corpuscular Hemoglobin Concent 35 g/dL (31-37) 35 g/dL (31-37) Red Cell Distribution Width 13.9 % (11.5-14.5) 14.1 % (11.5-14.5) Platelet Count 210 x10^3/uL (140-400) 199 x10^3/uL (140-400) Neutrophils (%) (Auto) 67 % (31-73) 68 % (31-73) Lymphocytes (%) (Auto) 18 % (24-48) 19 % (24-48) Monocytes (%) (Auto) 11 % (0-9) 9 % (0-9) Eosinophils (%) (Auto) 4 % (0-3) 4 % (0-3) Basophils (%) (Auto) 0 % (0-3) 1 % (0-3) Neutrophils # (Auto) 7.6 x10^3/uL (1.8-7.7) 6.7 x10^3/uL (1.8-7.7) Lymphocytes # (Auto) 2.0 x10^3/uL (1.0-4.8) 1.9 x10^3/uL (1.0-4.8) Monocytes # (Auto) 1.2 x10^3/uL (0.0-1.1) 0.9 x10^3/uL (0.0-1.1) Eosinophils # (Auto) 0.5 x10^3/uL (0.0-0.7) 0.4 x10^3/uL (0.0-0.7) Basophils # (Auto) 0.0 x10^3/uL (0.0-0.2) 0.1 x10^3/uL (0.0-0.2) Sodium Level 136 mmol/L (136-145) 138 mmol/L (136-145) Potassium Level 4.4 mmol/L (3.5-5.1) 4.0 mmol/L (3.5-5.1) Chloride Level 102 mmol/L (98-107) 105 mmol/L (98-107) Carbon Dioxide Level 28 mmol/L (21-32) 24 mmol/L (21-32) Anion Gap 6 (6-14) 9 (6-14) Blood Urea Nitrogen 13 mg/dL (8-26) 10 mg/dL (8-26) Creatinine 1.1 mg/dL (0.7-1.3) 0.9 mg/dL (0.7-1.3) Estimated GFR (Cockcroft-Gault) 69.5 87.6 BUN/Creatinine Ratio 12 (6-20) Glucose Level 152 mg/dL (70-99) 145 mg/dL (70-99) Calcium Level 9.1 mg/dL (8.5-10.1) 8.2 mg/dL (8.5-10.1) Total Bilirubin 4.1 mg/dL (0.2-1.0) Aspartate Amino Transf (AST/SGOT) 364 U/L (15-37) Alanine Aminotransferase (ALT/SGPT) 527 U/L (16-63) Alkaline Phosphatase 138 U/L (46-116) Troponin I Quantitative < 0.017 ng/mL (0.000-0.055) Total Protein 7.6 g/dL (6.4-8.2) Albumin 3.9 g/dL (3.4-5.0) Albumin/Globulin Ratio 1.1 (1.0-1.7) Lipase 34552 U/L (73-393) 5067 U/L (73-393) SARS-CoV-2 Antigen (Rapid) Negative (NEGATIVE) Triglycerides Level 82 mg/dL (0-150) Cholesterol Level 74 mg/dL (0-200) LDL Cholesterol, Calculated 26 mg/dL (0-100) VLDL Cholesterol, Calculated 16 mg/dL (0-40) Non-HDL Cholesterol Calculated 42 mg/dL (0-129) HDL Cholesterol 32 mg/dL (40-60) Cholesterol/HDL Ratio 2.3 Glucose (Fingerstick) 93 mg/dL (70-99) Test 02/12/20 06:05 Sodium Level 139 mmol/L (136-145) Potassium Level 4.1 mmol/L (3.5-5.1) Chloride Level 106 mmol/L (98-107) Carbon Dioxide Level 22 mmol/L (21-32) Anion Gap 11 (6-14) Blood Urea Nitrogen 11 mg/dL (8-26) Creatinine 1.0 mg/dL (0.7-1.3) Estimated GFR (Cockcroft-Gault) 77.6 BUN/Creatinine Ratio 11 (6-20) Glucose Level 98 mg/dL (70-99) Calcium Level 8.0 mg/dL (8.5-10.1) Total Bilirubin 1.1 mg/dL (0.2-1.0) Aspartate Amino Transf (AST/SGOT) 52 U/L (15-37) Alanine Aminotransferase (ALT/SGPT) 239 U/L (16-63) Alkaline Phosphatase 114 U/L (46-116) Total Protein 6.4 g/dL (6.4-8.2) Albumin 3.1 g/dL (3.4-5.0) Albumin/Globulin Ratio 0.9 (1.0-1.7) Lipase 944 U/L (73-393) Laboratory Tests Test 02/11/20 20:28 02/12/20 06:05 Glucose (Fingerstick) 93 mg/dL (70-99) Sodium Level 139 mmol/L (136-145) Potassium Level 4.1 mmol/L (3.5-5.1) Chloride Level 106 mmol/L (98-107) Carbon Dioxide Level 22 mmol/L (21-32) Anion Gap 11 (6-14) Blood Urea Nitrogen 11 mg/dL (8-26) Creatinine 1.0 mg/dL (0.7-1.3) Estimated GFR (Cockcroft-Gault) 77.6 BUN/Creatinine Ratio 11 (6-20) Glucose Level 98 mg/dL (70-99) Calcium Level 8.0 mg/dL (8.5-10.1) Total Bilirubin 1.1 mg/dL (0.2-1.0) Aspartate Amino Transf (AST/SGOT) 52 U/L (15-37) Alanine Aminotransferase (ALT/SGPT) 239 U/L (16-63) Alkaline Phosphatase 114 U/L (46-116) Total Protein 6.4 g/dL (6.4-8.2) Albumin 3.1 g/dL (3.4-5.0) Albumin/Globulin Ratio 0.9 (1.0-1.7) Lipase 944 U/L (73-393) Problem List Problems Medical Problems: (1) Cholecystitis, acute with cholelithiasis Status: Acute Assessment/Plan Gallstone pancreatitis labs improving clinically much improved Will allow full liquids today plan for laparoscopic cholecystectomy tomorrow Justicifation of Admission Dx: Justifications for Admission: Justification of Admission Dx: Yes (Acute cholecystitis with regional involvement of pancreas and liver) GONZALEZ BHAGAT MD Feb 12, 2020 08:11
[2020-02-12] MEDS: LISINOPRIL 10 MG TABLET PO SCH (08:40)
--- NOTE | 2020-02-12 10:14 | NUR ---
SW following. Discussed with RN, pt from home with . Full liquid diet today, plans for surgery tomorrow (02/13/2020). SW will continue to follow.
[2020-02-12 11:00] VITALS: BP 120/74
--- NOTE | 2020-02-12 12:14 | PDOC ---
[facility] PROGRESS NOTE Chief Complaint Chief Complaint Acute cholecystitis Transaminitis secondary to most likely cholelithiasis Acute cholecystitis by imaging studies Erythrocytosis, resolved Tobacco use History of Present Illness History of Present Illness Mr Amaya is a 55-year-old male with no significant past medical history who was in his usual state of health until more or less 2 weeks ago when he started complaining of epigastric pain. The patient has tried to self medicated at home with Pepto-Bismol Fatmata-Rhinelander and Nexium with very little relief of his symptoms. Patient denies dietary transgressions but when asked further the patient seems to indulge in pretty fatty foods including Sonic. The patient has been unable to keep anything down today and the pain he describes as a sharp sensation with no radiation to the back but does seem to be in a bandlike fashion across his epigastrium to the right and left flank. The patient has associated nausea no vomiting no diarrhea no travels outside this area and no sick contacts have been reported. The patient denies fever chills no other complaints were voiced. Patient was found to have findings concerning for acute cholecystitis on imaging studies: CT with gallbladder wall thickening. Gallstone in the gallbladder neck. These findings are consistent with acute cholecystitis. No radiopaque choledocholithiasis. Bilateral adrenal nodules. Significant for WBC 11.4 on admission down to 9.9 today. Bilirubin 4.1 alkaline phosphatase 136 AST 364 ALT 552 lipase 22,870 down to 5067 today. Total tri glycerides 82. He is hungry and asking for a cigarette. 02/12/2020: Patient seen an examined Chart reviewed Discussed with RN Vitals/I&O Vitals/I&O: Vital Signs Date Time Temp Pulse Resp B/P (MAP) Pulse Ox O2 Delivery O2 Flow Rate FiO2 02/12/20 11:00 98.1 64 20 120/74 (89) 95 Room Air 98.1 I & O 0 02/11/20 02/11/20 02/12/20 15:00 23:00 07:00 Output Total 0 ml Balance 0 ml Physical Exam Physical Exam: GEN.: NAD. Alert and oriented. HEENT: Head is normocephalic, atraumatic NECK: Supple. LUNGS: Clear to auscultation. HEART: RRR, S1, S2 present. Peripheral pulses intact ABDOMEN: Soft. Positive bowel sounds. EXTREMITIES: No cyanosis. NEUROLOGIC: Normal speech, normal tone PSYCHIATRIC: Normal affect, normal mood. SKIN: No ulcerations General: Alert, Oriented X3, Cooperative, No acute distress Heart: Regular rate, No murmurs Lungs: Clear Abdomen: Normal bowel sounds, Soft, Other (Mild tenderness in the epigastrium) Extremities: No edema Skin: No significant lesion Labs Labs: Laboratory Tests Test 02/11/20 20:28 02/12/20 06:05 02/12/20 08:29 02/12/20 11:03 Glucose (Fingerstick) 93 mg/dL (70-99) 106 mg/dL (70-99) 214 mg/dL (70-99) Sodium Level 139 mmol/L (136-145) Potassium Level 4.1 mmol/L (3.5-5.1) Chloride Level 106 mmol/L (98-107) Carbon Dioxide Level 22 mmol/L (21-32) Anion Gap 11 (6-14) Blood Urea Nitrogen 11 mg/dL (8-26) Creatinine 1.0 mg/dL (0.7-1.3) Estimated GFR (Cockcroft-Gault) 77.6 BUN/Creatinine Ratio 11 (6-20) Glucose Level 98 mg/dL (70-99) Calcium Level 8.0 mg/dL (8.5-10.1) Total Bilirubin 1.1 mg/dL (0.2-1.0) Aspartate Amino Transf (AST/SGOT) 52 U/L (15-37) Alanine Aminotransferase (ALT/SGPT) 239 U/L (16-63) Alkaline Phosphatase 114 U/L (46-116) Total Protein 6.4 g/dL (6.4-8.2) Albumin 3.1 g/dL (3.4-5.0) Albumin/Globulin Ratio 0.9 (1.0-1.7) Lipase 944 U/L (73-393) Assessment and Plan Assessmemt and Plan Problems Medical Problems: (1) Cholecystitis, acute with cholelithiasis Status: Acute ASSESSMENT Acute cholecystitis Transaminitis secondary to most likely cholelithiasis Acute cholecystitis by imaging studies Erythrocytosis, resolved PLAN Cholecystectomy tomorrow IV antibiotics Trend labs Appreciate subspecialist input DVT prophylaxis Full code Comment Review of Relevant I have reviewed the following items melissa (where applicable) has been applied. Medications: Current Medications Medications (Trade) Dose Ordered Sig/Damon Route PRN Reason Start Time Stop Time Status Last Admin Dose Admin Morphine Sulfate (Morphine Sulfate) 2 mg PRN Q2HR PRN IV PAIN 02/11/20 22:45 02/12/20 05:20 Lisinopril (Prinivil) 10 mg DAILY PO 02/11/20 22:45 02/12/20 08:40 Justicifation of Admission Dx: Justifications for Admission: Justification of Admission Dx: Yes (Acute cholecystitis with regional involvement of pancreas and liver) NIMCO MARTINEZ III DO Feb 12, 2020 12:14
[2020-02-12 15:06] VITALS: BP 149/97
[2020-02-12 19:00] VITALS: BP 136/87
[2020-02-12] MEDS: ENOXAPARIN 40 MG/0.4 ML SYRINGE. SQ SCH (21:00)
[2020-02-12] MEDS ORDERED: ATORVASTATIN CALCIUM 10 MG TABLET. PO SCH (21:00)
[2020-02-12 23:00] VITALS: BP 132/79
[2020-02-13 03:00] VITALS: BP 109/71
--- NOTE | 2020-02-13 03:17 | EKG ---
[facility] [address] [place] [address] Test Date: 2020-02-10 Test Time: 17:54:27 Pat Name: KATY SOTO Department: Room: Gender: M Head [employer] Professional: : 1965 Requested By: CELSO DE LA GARZA Order Number: [id number] Reading MD: Measurements Intervals [place] Rate: 70 P: 27 MO: 184 QRS: 8 QRSD: 84 T: 34 QT: 370 QTc: 402 Interpretive Statements SINUS RHYTHM NORMAL ECG RI6.01 No previous ECG available for comparison
[2020-02-13] MEDS: PIPERACILLIN/TAZOBACTAM 3.375 GM in IV NORMAL SALINE 50ML 50 ML IV SCH ×2 (05:33→12:00)
[2020-02-13] MEDS ORDERED: ONDANSETRON PF 4 MG/2 ML VIAL. IV PRN (07:00)
[2020-02-13] MEDS ORDERED: PROCHLORPERAZINE 10 MG/2 ML VIAL. IV PRN (07:00)
[2020-02-13] MEDS ORDERED: IV RINGERS,LACTATED 1000ML 1,000 ML IV SCH (07:00)
[2020-02-13] MEDS ORDERED: HYDROmorphone 2 MG/ML VIAL IV PRN (07:00)
[2020-02-13] MEDS ORDERED: fentaNYL PF VIAL 100 MCG/2 ML VIAL IV PRN (07:00)
[2020-02-13] MEDS ORDERED: LIDOCAINE 1% PF 2 ML VIAL. ID PRN (07:00)
[2020-02-13] MEDS ORDERED: MORPHINE SULFATE 2 MG/ML VIAL. IV PRN (07:00)
[2020-02-13] MEDS ORDERED: MIDAZOLAM HCL/PF 2 MG/2 ML VIAL. ONE (07:01)
[2020-02-13] MEDS ORDERED: fentaNYL PF VIAL 100 MCG/2 ML VIAL ONE ×4 (07:01→08:43)
[2020-02-13] MEDS ORDERED: NEOSTIGMINE METHYLSULFATE 5 MG/5 ML SYRINGE. ONE (07:01)
[2020-02-13] MEDS ORDERED: SEVOFLURANE 61 TO 120 MINUTES. IH ONE (07:01)
[2020-02-13] MEDS ORDERED: ROCURONIUM 50 MG/5 ML VIAL. ONE (07:01)
[2020-02-13] MEDS ORDERED: GLYCOPYRROLATE 1 MG/5 ML VIAL. ONE (07:02)
[2020-02-13] MEDS ORDERED: DEXAMETHASONE SOD PHOS 4 MG/ML VIAL ONE ×2 (07:02)
[2020-02-13] MEDS ORDERED: LIDOCAINE 2% PF 5 ML VIAL. ONE (07:02)
[2020-02-13] MEDS ORDERED: ONDANSETRON PF 4 MG/2 ML VIAL. ONE (07:02)
[2020-02-13] MEDS ORDERED: PROPOFOL 10 MG/ML (20ML) VIAL. IV ONE (07:02)
[2020-02-13] MEDS ORDERED: SURGICEL HEMOSTAT 4X8 EACH. ONE (07:06)
[2020-02-13] MEDS ORDERED: IOHEXOL 300 MG/ML 50 ML VIAL. ONE (07:06)
[2020-02-13] MEDS ORDERED: BUPIVACAINE-EPI 0.25%-1:200000 MPF 30 ML VIAL. ONE (07:06)
[2020-02-13] MEDS: INSULIN LISPRO 300 UNITS/3 ML VIAL. SQ SCH ×2 (07:30→12:08)
[2020-02-13] MEDS ORDERED: hydrALAZINE 20 MG/ML VIAL. ONE (08:03)
--- NOTE | 2020-02-13 08:39 | PDOC4 ---
Operative Note Operative Note Date: February 13, 2020 at 08 36 Preoperative diagnosis: Gallstone pancreatitis Postoperative diagnosis: Same Procedure: Laparoscopic cholecystectomy Surgeon: Thanh Specimen: Gallbladder Dictation: Patient is a 55-year-old gentleman admitted to the hospital with pancreatitis ultrasound showing gallstones and thickened gallbladder wall. Procedure of laparoscopic cholecystectomy was explained to the patient detail risk-benefit were also discussed including bleeding infection injury to intra- abdominal contents possible necessitating further or open operations alternatives to this procedure also discussed with the patient who seemed to understand and gave both verbal and written consent to have the procedure performed. Patient was taken to the operating room placed in the supine position general anesthesia was initiated once patient was sleeping intubated his abdomen was prepped and draped usual sterile fashion using ChloraPrep. An area just below the umbilicus was injected with quarter percent Marcaine with epinephrine incision was made 11 blade scalpel a varies needle was placed within the abdomen creating pneumoperitoneum once this was complete the millimeter port was placed and a 5 mm camera is placed within the abdomen which was inspected no other abnormalities were noted other than a thickened edematous gallbladder. 5 mm port was placed in the epigastrium a 5 mm port in the right midabdomen and a 5 mm port in the right lateral abdomen. The dome of the gallbladder is grasped retracted cephalad the infundibulum the gallbladder is grasped tract and laterally adherence of some omentum to the gallbladder wall was taken down with blunt dissection down to the triangle adherent tissues the triangle were taken down with blunt dissection exposing the cystic duct and cystic artery both were doubly clipped and transected the gallbladder was taken off the liver with hook electrocautery placed in Endo Catch bag removed and the umbilicus the right upper quadrant is irrigated and suctioned dry hemostasis deemed be appropriate and the pneumoperitoneum was reduced all ports were removed the fascial defect at the umbilicus closed [id number] Vicryl suture and the skin was reapproximated all port sites for subcuticular Monocryl Mastisol Steri-Strips and island dressings were applied. Patient was awakened and extubated in the operating room taken to recovery in stable condition all sponge instrument needle counts listed as correct estimated blood loss 15 mL. GONZALEZ BHAGAT MD Feb 13, 2020 08:39
[2020-02-13] MEDS ORDERED: oxyCODONE/APAP 5/325 1 TAB TABLET PO PRN (08:45)
[2020-02-13] MEDS: fentaNYL PF VIAL 100 MCG/2 ML VIAL IV PRN ×2 (09:05→09:16)
[2020-02-13] MEDS ORDERED: INSULIN LISPRO 100 UNIT/ML 3ML VIAL for OP,RR ONLY. SQ PRN (09:30)
[2020-02-13 09:50] VITALS: BP 135/80
[2020-02-13] MEDS: LISINOPRIL 10 MG TABLET PO SCH (09:54)
[2020-02-13] MEDS: oxyCODONE/APAP 5/325 1 TAB TABLET PO PRN ×2 (09:54→11:31)
[2020-02-13] MEDS: IV NORMAL SALINE 1000ML BAG 1,000 ML IV SCH (09:56)
[2020-02-13 10:05] VITALS: BP 140/87
[2020-02-13 10:20] VITALS: BP 125/88
--- NOTE | 2020-02-13 11:04 | NUR ---
SW following. Discussed with RN, pt had surgery this morning. RN advised no SW needs, pt is discharging home today with self care.
--- NOTE | 2020-02-13 11:34 | DS ---
DATE OF DISCHARGE: 02/11/2020 ADMISSION DIAGNOSIS: Gallstone pancreatitis. DISCHARGE DIAGNOSIS: Postop day #1 laparoscopic cholecystectomy. HOSPITAL COURSE: The patient is a pleasant middle-aged male, who presented with gallstone pancreatitis. He was admitted. We gave him antibiotics, pain meds, fluids. Consulted the General Surgery. This morning was taken for laparoscopic cholecystectomy. I saw him and examined him a few minutes ago. His heart tones were normal. Lungs were clear. Abdomen was soft. He has got good clean, dry and intact dressing. He is tolerating his food. He wants to go home. We plan to discharge. DISPOSITION: Home. ACTIVITY: As tolerated. DIET: Low sodium. MEDICATIONS: Please see MRAD. TOTAL TIME: 34 minutes. NIMCO MARTINEZ DO DR: ARTURO/pancho JOB#: [id number] / [id number]
--- NOTE | 2020-02-13 11:41 | NUR ---
Discharge Note: KATY SOTO GRANTS Discharge instructions and discharge home medications reviewed with Patient and a copy given. All questions have been answered and understanding verbalized. The following instructions and handouts were given: d/c instructions Discontinued lines and drains: Peripheral IV intact. Patient discharged to Home or Self Care with Spouse via Wheelchair
--- NOTE | 2020-02-14 17:07 | PATHOLOGY ---
[facility] Accession Number: [id number] . 01 Material submitted: . gallbladder - GALLBLADDER AND CONTENTS . 01 Clinical history: . Gallstone pancreatitis, acute cholecystitis . 02 Diagnosis: Gallbladder, laparoscopic cholecystectomy: - Cholelithiasis. - Chronic cholecystitis with focally increased eosinophils. . (JP:mm; 02/14/2020) [facility] 02/14/2020 1406 Local . 02 Comment: There is no evidence of malignancy. . (JPM:mm; 02/14/2020) . 02 Electronically signed: . James Arias MD, Pathologist NPI- [id number] . 01 Gross description: . The specimen is received in formalin, labeled "Shahab Amaya, gallbladder and contents". Received is a partially disrupted gallbladder measuring 10.8 x 4.1 x 3.7 cm in greatest dimensions displaying a pink-quinones serosal surface. Opening the specimen reveals a velvety to trabeculated, pink-red mucosa with a gallbladder wall thickness of 0.1 cm. The lumen of the gallbladder is completely impacted with bright yellow, multinodular to staghorn-appearing stones, and no masses or lesions are noted grossly. Digital Sales Manager sections, to include the proximal margin, are submitted in cassette A1. ([facility]; 02/13/2020) QA/QA 02/14/2020 1404 Local . 02 Pathologist provided ICD-10: K80.10 . 02 CPT . 406933 Specimen Comment: A courtesy copy of this report has been sent to [phone], [phone] Specimen Comment: [id number], Specimen Comment: Report sent to ,DR GOMEZ / DR WATERS Performed at: 01 [facility] [address], [place], [place] [id number] MD Amari Brady MD Phone: [phone] Performed at: 02 [facility] [address], [place] [id number] MD James Arias MD Phone: [phone]
== END 2020-02-13 13:06 | disposition home or self-care (01) | DRG 417 ==
LOC: ER 15:18 → 5 NORTH 20:02
PROVIDERS: ADMIT Internal Medicine; ATTEND Internal Medicine
PROC: 0FT44ZZ Resection of Gallbladder, Percutaneous Endoscopic Approach (ICD-10-PCS; principal; 2020-02-13 07:30)
DX: K80.00 Calculus of gallbladder with acute cholecystitis without obstruction (principal); K85.10 Biliary acute pancreatitis without necrosis or infection; D75.1 Secondary polycythemia; E27.8 Other specified disorders of adrenal gland; F17.200 Nicotine dependence, unspecified, uncomplicated; R73.03 Prediabetes; Z03.818 Encounter for observation for suspected exposure to other biological agents ruled out
CPT/HCPCS: 36415; 71045; 74177; 80048; 80053; 80061; 82962; 83690; 84484; 85025; 87426; 88304; 93005; 96365; 99285; A7015; J0360; J1100; J1650; J1815; J2250; J2270; J2405; J2543; J2704; J2710; J3010; J3490; J7030; J7120; Q9967; G0378; U0003-CS

== ENCOUNTER 2020-02-13 22:00 | Emergency (ER) | payer OTHER ==
[~2020-02-13] VITALS: Ht 182.9 cm; Wt 104.5 kg
[~2020-02-13 22:00] MED LIST changes: +ATOR10TA60 PO; +DAPA10TA PO; +LISI10TA2 PO; +METF10007 PO
--- NOTE | 2020-02-13 22:57 | PHYS DOC ---
Past Medical History Past Medical History: Other Additional Past Medical Histor: broken bones,PRE DIABETIC Past Surgical History: Tonsillectomy, Other Additional Past Surgical Histo: L big toe; Smoking Status: Current Every Day Smoker Alcohol Use: Occasionally Drug Use: None General Adult EDM: Chief Complaint: POST-OP PROBLEM HPI: HPI: Patient is a 55-year-old male who was discharged earlier today after laparoscopic cholecystectomy presents tonight because the wound near his umbilicus is bleeding. He states he coughed once felt a little pop in that area and then noticed some blood trickling through the dressing he denies any pain. He states on arrival here the bleeding seems to be controlled. [] Review of Systems: Review of Systems: Constitutional: Denies fever or chills. [] Eyes: Denies change in visual acuity. [] HENT: Denies nasal congestion or sore throat. [] Respiratory: Denies cough or shortness of breath. [] Cardiovascular: Denies chest pain or edema. [] GI: Denies abdominal pain, nausea, vomiting, bloody stools or diarrhea. [] : Denies dysuria. [] Musculoskeletal: Denies back pain or joint pain. [] Integument: Per HPI [] Neurologic: Denies headache, focal weakness or sensory changes. [] Endocrine: Denies polyuria or polydipsia. [] Lymphatic: Denies swollen glands. [] Psychiatric: Denies depression or anxiety. [] Heart Score: Risk Factors: Risk Factors: DM, Current or recent (<one month) smoker, HTN, HLP, family history of CAD, obesity. Risk Scores: Score 0 - 3: 2.5% MACE over next 6 weeks - Discharge Home Score 4 - 6: 20.3% MACE over next 6 weeks - Admit for Clinical Observation Score 7 - 10: 72.7% MACE over next 6 weeks - Early Invasive Strategies Allergies: Allergies: Allergies Coded Allergies Type Severity Reaction Last Updated Verified No Known Drug Allergies 08/12/17 No Physical Exam: PE: Constitutional: Well developed, well nourished, no acute distress, non-toxic appearance. [] HENT: Normocephalic, atraumatic, bilateral external ears normal, oropharynx moist, no oral exudates, nose normal. [] Eyes: PERRLA, EOMI, conjunctiva normal, no discharge. [] Neck: Normal range of motion, no tenderness, supple, no stridor. [] Cardiovascular:Heart rate regular rhythm, no murmur [] Lungs & Thorax: Bilateral breath sounds clear to auscultation [] Abdomen: Bowel sounds normal, soft, no tenderness, no masses, no pulsatile masses. [] Skin: The surgical incision near the umbilicus has 4 Steri-Strips in place but it does appear that a small area of that wound has dehisced and was oozing some blood. The bleeding appears controlled now [] Back: No tenderness, no CVA tenderness. [] Extremities: No tenderness, no cyanosis, no clubbing, ROM intact, no edema. [] Neurologic: Alert and oriented X 3, normal motor function, normal sensory function, no focal deficits noted. [] Psychologic: Affect normal, judgement normal, mood normal. [] EKG: EKG: [] Radiology/Procedures: Radiology/Procedures: [] Course & Med Decision Making: Course & Med Decision Making Pertinent Labs and Imaging studies reviewed. (See chart for details) [ED course: Evaluation reveals a 55-year-old male who has a small wound dehiscence near the umbilicus. Bleeding is controlled a new dressing was placed patient was reassured and discharged.] Dragon Disclaimer: Dragon Disclaimer: This electronic medical record was generated, in whole or in part, using a voice recognition dictation system. Departure Departure Impression: Primary Impression: Surgical wound dehiscence Qualified Codes: T81.31XA - Disruption of external operation (surgical) wound, not elsewhere classified, initial encounter Disposition: 01 HOME, SELF-CARE Condition: STABLE Referrals: JOSSELY[facility] PUBLICIST (PCP) Patient Instructions: Wound Dehiscence Additional Instructions: Follow with your surgeon as scheduled. Return to the emergency department with any new or concerning symptoms Justicifation of Admission Dx: Justifications for Admission: Justification of Admission Dx: No DUKE FERNANDEZ DO Feb 13, 2020 22:57
[2020-02-13 23:10] VITALS: BP 132/87
== END 2020-02-13 23:13 | disposition home or self-care (01) ==
LOC: ER 22:00
DX: T81.31XA Disruption of external operation (surgical) wound, not elsewhere classified, initial encounter (principal); F17.200 Nicotine dependence, unspecified, uncomplicated; Z90.89 Acquired absence of other organs; Z98.890 Other specified postprocedural states
CPT/HCPCS: 99282

== ENCOUNTER 2020-06-18 20:57 | Emergency (ER) | payer OTHER ==
[~2020-06-18] VITALS: Ht 182.9 cm; Wt 104.5 kg
[2020-06-18] MEDS ORDERED: DOXY100C2 PO (21:18)
--- NOTE | 2020-06-18 21:18 | PHYS DOC ---
Past Medical History Past Medical History: Other Additional Past Medical Histor: broken bones,PRE DIABETIC Past Surgical History: Cholecystectomy, Tonsillectomy, Other Additional Past Surgical Histo: L big toe; Smoking Status: Current Every Day Smoker Alcohol Use: Occasionally Drug Use: None General Adult EDM: Chief Complaint: FINGER INJURY HPI: HPI: 55-year-old male past medical history of type 2 diabetes presents to the ED with complaints of blunt injury to patient's nondominant left pinky after dropping a heavy box on it around 6pm tonight. Has a laceration over his ventral DIP joint. Reports prior injury to this finger with minimal flexion of the DIP joint-was offered surgery but declined because he didn't want his finger stuck in extensor position. 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 Tetanus is UTD. No known h/o MRSA. Review of Systems: Review of Systems: Constitutional: Denies fever or chills. [] Eyes: Denies change in visual acuity. [] HENT: Denies nasal congestion or sore throat. [] Respiratory: Denies cough or shortness of breath. [] Cardiovascular: Denies chest pain or edema. [] GI: Denies abdominal pain, nausea, vomiting, bloody stools or diarrhea. [] : Denies dysuria. [] Musculoskeletal: Denies back pain or cva ttp Integument: Denies rash. [] Neurologic: Denies headache, focal weakness or sensory changes. [] Endocrine: Denies polyuria or polydipsia. [] Lymphatic: Denies swollen glands. [] Psychiatric: Denies depression or anxiety. [] Heart Score: Risk Factors: Risk Factors: DM, Current or recent (<one month) smoker, HTN, HLP, family history of CAD, obesity. Risk Scores: Score 0 - 3: 2.5% MACE over next 6 weeks - Discharge Home Score 4 - 6: 20.3% MACE over next 6 weeks - Admit for Clinical Observation Score 7 - 10: 72.7% MACE over next 6 weeks - Early Invasive Strategies Allergies: Allergies: Allergies Coded Allergies Type Severity Reaction Last Updated Verified No Known Drug Allergies 08/12/17 No Physical Exam: PE: Constitutional: Well developed, well nourished, no acute distress, non-toxic appearance. HENT: Normocephalic, atraumatic, Eyes: EOMI, conjunctiva normal, no discharge. Neck: Normal range of motion, supple, Cardiovascular: S1/2 present, regular rhythm Lungs & Thorax: Speaking in full sentences, bilateral equal chest rise, no tachypnea or increased work of breathing Abdomen: soft, no tenderness, Skin: Warm, dry, cap refill < 1 second Extremities: laceration of ventral aspect left 5th pinky over PIP joint, L 5th digit in boutennire deformity -states PIP joint flexion is normal from prior injury but DIP joint is more flexed than before, dirty/soiled covered hand Neurologic: Alert and oriented X 3, normal motor function, normal sensory function, no focal deficits noted. [] Psychologic: Affect normal, judgement normal, mood normal. [] EKG: EKG: [] Radiology/Procedures: Radiology/Procedures: Indication: Left fifth finger laceration ventral aspect of PIP joint Procedure: The patient was placed in the appropriate position and anesthesia around the laceration with 0.5% bupivacaine. The area was then copiously irrigated with normal saline. The laceration was closed with 5-0 Prolene, total 3 sutures simple interrupted. The wound area was then dressed with double antibiotic ointment and sterile dressings. Total repaired wound length: 1cm. The patient tolerated the procedure . Complications: None. Placed in nichol taping although limited given pts' chronic boutnierre deformity IMAGING REPORT Signed PATIENT: KATY SOTO ACCOUNT: [id number] : 1965 LOCATION: ER AGE: 55 SEX: M EXAM STATUS: REG ER ORD. PHYSICIAN: LIUDMILA NICOLE DO REASON: 5th digit pain/blunt injury with lac PROCEDURE: HAND LEFT 2V Exam: Left finger 2 views. Left hand 2 views INDICATION: Fifth digit pain, injury TECHNIQUE: Frontal and lateral views of the left hand. Oblique and lateral views of the fifth digit Comparisons: None FINDINGS: Bone mineralization is normal. Nondisplaced fracture at the base of the middle phalanx of the fifth digit. Soft tissues are unremarkable. Joint spaces are well-maintained. IMPRESSION: Nondisplaced fracture involving the anterior volar plate of the fifth digit middle phalanx. Electronically signed by: Braxton Garrison MD (06/18/2020 9:32 PM) [facility] DICTATED and SIGNED BY: BRAXTON GARRISON MD DATE: 06/18/20 [id number] 0 Course & Med Decision Making: Course & Med Decision Making Pertinent Labs and Imaging studies reviewed. (See chart for details) Concern for blunt due to left finger with middle phalanx fracture and laceration over PIP joint now repaired. Patient be prescribed doxy to cover for MRSA and Shelby as needed for pain. Strict ED return precautions were given for severe pain, neurologic deficits, rash, redness, purulent drainage or signs of infection. Encouraged urgent outpatient follow-up with PMD and hand surgery. Life-threatening processes were considered but are low suspicion at this time, given history and physical exam. Pt was educated on all prescription medications and adverse effects. All patient's questions were answered and pt was stable at time of discharge. Life/limb-threatening differential includes but is not limited to, intracranial hemorrhage, diffuse axonal injury, spinal cord syndrome, unstable cervical fracture or SCIWORA, fractures or joint dislocations, neurovascular injuries, organ injury or laceration, pneumothorax, pneumoperitoneum, pericardial tamponade, unstable pelvic fracture, compartment syndrome, flail chest or respiratory distress, burn injury or asphyxiation I spoken with the patient and her caregivers. I explained the patient's condition, diagnoses and treatment plan based on the information available to me at this time. I have answered the patient and her caregiver's questions and addressed any concerns. The patient and her caregivers have a good understanding of patient's diagnosis, condition and treatment plan as can be expected at this point. Vital signs have been stable. Patient's condition is stable and appropriate for discharge from the emergency department. Patient will pursue further outpatient evaluation with primary care physician or other designated or consulting physician as outlined in the discharge instructions. The patient and/or caregivers are agreeable to this plan of care and follow-up instructions have been explained in detail. The patient and/or caregivers have received these instructions in written form and have expressed an understanding of the discharge instructions. The patient and/or caregivers are aware that any significant change of condition or worsening of symptoms should prompt immediate return to this or the closest emergency department or call to 911. Nadeen Disclaimer: Nadeen Disclaimer: This electronic medical record was generated, in whole or in part, using a voice recognition dictation system. Departure Departure Impression: Primary Impression: Crush injury of hand Additional Impressions: Laceration of finger Fracture of middle phalanx of finger of left hand Disposition: 01 DC HOME SELF CARE/HOMELESS Condition: STABLE Referrals: [facility] MANAGER (PCP) suture removal in 7-10 days Patient Instructions: Finger Fracture (Phalangeal)-[facility], Laceration Care, Adult Additional Instructions: [facility] Appointments may be made with Molina Nazario MD, Daryl Rodriguez MD, Nikolas Wilkinson MD or Sarah Kerns MD, by calling [phone] EMERGENCY DEPARTMENT GENERAL DISCHARGE INSTRUCTIONS Thank you for coming to [facility] Emergency Department (ED) today and trusting us with you care. We trust that you had a positive experience in our Emergency Department. If you wish to speak to the department management, you may call the Director at [phone]. YOUR FOLLOW UP INSTRUCTIONS ARE FOLLOWS: 1. Do you have a private Doctor? If you do not have a private doctor, please ask for a resource list of physicians or clinics that may be able to assist you with follow up care. 2. The Emergency Physicain has interpreted your x-rays. The X-Ray specialist will also review them. If there is a change in the findings, you will be notified in 48 hours when at all possible. 3. A lab test or culture has been done, your results will be reviewed and you will be notified if you need a change in treatment. ADDITIONAL INSTRUCTIONS AND INFORMATION: 1. Your care today has been supervised by a physician who is specially trained in emergency care. Many problems require more than one evaluation for a complete diagnosis and treatment. We recommend that you schedule your follow up appointment as recommended to ensure complete treatment of you illness or injury. If you are unable to obtain follow up care and continue to have a problem, or if your condition worsens, we recommend that you return to the ED. 2. We are not able to safely determine your condition over the phone nor are we able to give sound medical advice over the phone. For these safety reasons, if you call for medical advice we will ask you to come to the ED for further evaluation. 3. If you have any questions regarding these discharge instructions please call the ED at [phone]. SAFETY INFORMATION: In the interest of safety, wellness, and injury prevention; we encourage you to wear your sealbelt, if you smoke; quite smoking, and we encourage family to use a protective helmet for bicycling and other sporting events that present an increased risk for head injury. IF YOUR SYMPTOMS WORSEN OR NEW SYMPTOMS DEVELOP, OR YOU HAVE CONCERNS ABOUT YOUR CONDITION; OR IF YOUR CONDITION WORSENS WHILE YOU ARE WAITING FOR YOUR FOLLOW UP APPOIN TMENT; EITHER CONTACT YOUR PRIMARY CARE DOCTOR, THE PHYSICIAN WHOSE NAME AND NUMBER YOU WERE GIVEN, OR RETURN TO THE ED IMMEDIATELY. Scripts Hydrocodone/Apap 5-325 (NORCO 5-325 TABLET) 1 Each Tablet 1 TAB PO PRN Q6HRS PRN for PAIN for 4 Days, #16 TAB 0 Refills Prov: LIUDMILA NICOLE DO 06/18/20 Doxycycline Hyclate (DOXYCYCLINE HYCLATE) 100 Mg Capsule 1 CAP PO BID for 7 Days, #14 CAP Prov: LIUDMILA NICOLE DO 06/18/20 LIUDMILA NICOLE DO Jun 18, 2020 21:18
[2020-06-18] MEDS ORDERED: NEOMY/BACITR/POLYMYXIN OINT PACKET. TP ONE (21:30)
[2020-06-18] MEDS ORDERED: BUPIVACAINE MPF 0.5% 30 ML VIAL. INJ ONE (21:30)
--- NOTE | 2020-06-18 21:35 | RAD ---
Exam: Left finger 2 views. Left hand 2 views INDICATION: Fifth digit pain, injury TECHNIQUE: Frontal and lateral views of the left hand. Oblique and lateral views of the fifth digit Comparisons: None FINDINGS: Bone mineralization is normal. Nondisplaced fracture at the base of the middle phalanx of the fifth digit. Soft tissues are unremarkable. Joint spaces are well-maintained. IMPRESSION: Nondisplaced fracture involving the anterior volar plate of the fifth digit middle phalanx. Electronically signed by: Braxton Rasmussen MD (06/18/2020 9:32 PM) [facility]
[2020-06-18] MEDS ORDERED: HYDR-3164 PO (22:19)
[2020-06-18 22:25] VITALS: BP 135/70
== END 2020-06-18 22:25 | disposition home or self-care (01) ==
LOC: ER 20:57
DX: S61.217A Laceration without foreign body of left little finger without damage to nail, initial encounter (principal); E11.9 Type 2 diabetes mellitus without complications; F17.200 Nicotine dependence, unspecified, uncomplicated; Z90.89 Acquired absence of other organs; Z90.49 Acquired absence of other specified parts of digestive tract; Z98.890 Other specified postprocedural states; W20.8XXA Other cause of strike by thrown, projected or falling object, initial encounter; Y93.89 Activity, other specified; Y92.89 Other specified places as the place of occurrence of the external cause; Y99.8 Other external cause status
CPT/HCPCS: 12001; 73120; 73140; 99284